=== PATIENT | male | born 1960 | race Caucasian/White ===

== ENCOUNTER 2021-03-05 17:58 | Inpatient (IN) | payer SELFPAY ==
[~2021-03-05] VITALS: Ht 165.1 cm; Wt 83.5 kg
[2021-03-05] MEDS ORDERED: ASPI-1497 PO (18:14)
[2021-03-05] MEDS ORDERED: LOSA25TA26 PO (18:14)
[2021-03-05] MEDS ORDERED: CLOP75TA33 PO (18:14)
[2021-03-05] MEDS ORDERED: CARV3.1242 PO (18:14)
[2021-03-05] MEDS ORDERED: SPIR25TA6 PO (18:14)
[2021-03-05] MEDS ORDERED: ATOR-2 PO (18:14)
[2021-03-05] MEDS ORDERED: TORS20TA4 PO (18:14)
[2021-03-05 19:08] LABS: BASOPHILS % 0.9 % (0.0-2.0); EOSINOPHILS % 1.6 % (0.0-5.0); HEMATOCRIT. 28.6 % (42.0-52.0); HEMOGLOBIN. 8.7 g/dL (14.0-18.0); LYMPHOCYTES % 26.9 % (20.0-50.0); MEAN CORPUSCULAR HEMOGLOBIN 21.1 pg (28.0-32.0); MEAN CORPUSCULAR VOLUME 69.7 fL (80.0-94.0); MEAN PLATELET VOLUME 8.2 fl (7.4-10.4); MONOCYTES % 7.1 % (2.0-8.0); NEUTROPHILS % 63.5 % (40.0-76.0); PLATELET 243 x1000/uL (130-400); RED BLOOD CELL COUNT 4.11 mill/uL (4.7-6.1)
[2021-03-05 19:28] LABS: PLATELET ESTIMATE NORMAL
[2021-03-05] MEDS ORDERED: FUROSEMIDE 40MG/4ML VIAL IVP ONE (22:15)
[2021-03-06] MEDS ORDERED: MAGNESIUM/ALUMINUM HYDROXIDE/SIMETHICONE 30ML UDC PO PRN (00:15)
[2021-03-06] MEDS ORDERED: CLONIDINE 0.1MG TABLET PO PRN (00:15)
[2021-03-06] MEDS ORDERED: ONDANSETRON HCL 4MG/2ML INJ IV PRN (00:15)
[2021-03-06] MEDS ORDERED: DEXTROSE 50% WATER 50ML SYRINGE IV PRN (00:15)
[2021-03-06] MEDS ORDERED: GUAIFENESIN 200MG/10ML SUGAR FREE UDC PO PRN (00:15)
[2021-03-06] MEDS ORDERED: ACETAMINOPHEN 325MG TABLET PO PRN ×2 (00:15)
[2021-03-06] MEDS ORDERED: ZOLPIDEM TARTRATE 5MG TABLET PO PRN (00:15)
[2021-03-06] MEDS ORDERED: DIPHENHYDRAMINE 50MG/ML VIAL IV PRN (00:15)
[2021-03-06 00:33] LABS: TOTAL IRON BINDING CAPACITY 442 ug/dL (250-450)
[2021-03-06] MEDS: SODIUM CHLORIDE 0.9% INJ 3ML FLUSH IVF SCH ×2 (06:20→14:00)
[2021-03-06] MEDS: INSULIN LISPRO 100 UNITS/ML SUBCUT SCH ×4 (08:20→20:08)
[2021-03-06] MEDS: ENOXAPARIN 40MG/0.4ML SYR SUBCUT SCH (08:32)
[2021-03-06] MEDS: CLOPIDOGREL 75MG TABLET PO SCH (08:32)
[2021-03-06] MEDS: FAMOTIDINE 20MG TABLET PO SCH (08:32)
[2021-03-06] MEDS: ASPIRIN 81MG EC TABLET PO SCH (08:44)
[2021-03-06] MEDS: BLOOD SUGAR DIAGNOSTIC STRIP TEST SCH ×4 (08:44→20:08)
[2021-03-06] MEDS ORDERED: CARVEDILOL 6.25 MG TABLET PO SCH (09:00)
[2021-03-06] MEDS ORDERED: FAMOTIDINE 20MG TABLET PO SCH (09:00)
[2021-03-06] MEDS ORDERED: TICAGRELOR 90 MG TABLET PO SCH (09:00)
[2021-03-06] MEDS ORDERED: FUROSEMIDE 40MG/4ML VIAL IVP SCH (09:00)
[2021-03-06] MEDS: LOSARTAN POTASSIUM 25 MG TABLET PO SCH (09:37)
[2021-03-06] MEDS: SPIRONOLACTONE 50MG TABLET PO SCH (09:37)
[2021-03-06] MEDS: CARVEDILOL 3.125 MG TABLET PO SCH ×2 (09:37→20:08)
[2021-03-06 09:45] VITALS: BP 114/74
[2021-03-06 11:16] VITALS: BP 114/74
[2021-03-06 12:00] VITALS: BP 119/77
[2021-03-06] MEDS ORDERED: BUMETANIDE 1MG/4ML VIAL IV SCH (14:30)
[2021-03-06 16:00] VITALS: BP 117/72
[2021-03-06] MEDS ORDERED: METOLAZONE 10MG TABLET PO NR (18:00)
[2021-03-06] MEDS: BUMETANIDE 1MG/4ML VIAL IV SCH (18:16)
[2021-03-06 20:04] VITALS: BP 103/70
[2021-03-06] MEDS: ATORVASTATIN CALCIUM 40MG TABLET PO SCH (20:11)
[2021-03-06] MEDS ORDERED: ATORVASTATIN CALCIUM 40MG TABLET PO SCH (21:00)
[2021-03-07] VITALS (8 sets, daily range): BP systolic 100–130; BP diastolic 54–91
[2021-03-07] MEDS: BUMETANIDE 1MG/4ML VIAL IV SCH ×2 (05:00→18:07)
[2021-03-07] MEDS: SODIUM CHLORIDE 0.9% INJ 3ML FLUSH IVF SCH ×2 (05:02→14:27)
[2021-03-07] MEDS: BLOOD SUGAR DIAGNOSTIC STRIP TEST SCH ×4 (07:30→21:00)
[2021-03-07] MEDS: INSULIN LISPRO 100 UNITS/ML SUBCUT SCH ×4 (08:00→21:00)
[2021-03-07] MEDS: ENOXAPARIN 40MG/0.4ML SYR SUBCUT SCH (09:05)
[2021-03-07] MEDS: LOSARTAN POTASSIUM 25 MG TABLET PO SCH (09:06)
[2021-03-07] MEDS: CLOPIDOGREL 75MG TABLET PO SCH (09:06)
[2021-03-07] MEDS: SPIRONOLACTONE 50MG TABLET PO SCH (09:07)
[2021-03-07] MEDS: FAMOTIDINE 20MG TABLET PO SCH (09:07)
[2021-03-07] MEDS: ASPIRIN 81MG EC TABLET PO SCH (09:07)
[2021-03-07] MEDS: CARVEDILOL 3.125 MG TABLET PO SCH ×2 (09:08→21:15)
[2021-03-07 12:47] LABS: BASOPHILS % 0.6 % (0.0-2.0); EOSINOPHILS % 1.9 % (0.0-5.0); HEMATOCRIT. 25.9 % (42.0-52.0); LYMPHOCYTES % 20.2 % (20.0-50.0); MEAN CORPUSCULAR HEMOGLOBIN 21.2 pg (28.0-32.0); MEAN CORPUSCULAR VOLUME 68.7 fL (80.0-94.0); MONOCYTES % 8.2 % (2.0-8.0); NEUTROPHILS % 69.1 % (40.0-76.0); PLATELET 222 x1000/uL (130-400); RED BLOOD CELL COUNT 3.76 mill/uL (4.7-6.1); RED CELL DISTRIBUTION WIDTH 20.8 % (11.6-14.6)
[2021-03-07] MEDS: METOLAZONE 10MG TABLET PO NR ×2 (15:05→17:35)
[2021-03-07] MEDS: POTASSIUM CHLORIDE 20MEQ TABLET SR PO SCH ×2 (16:00→17:35)
[2021-03-07] MEDS: ATORVASTATIN CALCIUM 40MG TABLET PO SCH (21:14)
[2021-03-08] VITALS (9 sets, daily range): BP systolic 94–112; BP diastolic 29–80
[2021-03-08] MEDS: SODIUM CHLORIDE 0.9% INJ 3ML FLUSH IVF SCH ×4 (01:13→22:03)
[2021-03-08] MEDS: BUMETANIDE 1MG/4ML VIAL IV SCH ×2 (05:36→18:18)
[2021-03-08] MEDS: BLOOD SUGAR DIAGNOSTIC STRIP TEST SCH ×4 (07:30→21:00)
[2021-03-08] MEDS: INSULIN LISPRO 100 UNITS/ML SUBCUT SCH ×4 (08:00→21:00)
[2021-03-08 08:27] LABS: CHLORIDE 102 mEq/L (98-107)
[2021-03-08 08:37] LABS: PHOSPHORUS 5.6 mg/dL (2.5-4.9)
[2021-03-08] MEDS: ENOXAPARIN 40MG/0.4ML SYR SUBCUT SCH (08:46)
[2021-03-08] MEDS: CARVEDILOL 3.125 MG TABLET PO SCH ×2 (08:47→22:02)
[2021-03-08] MEDS: LOSARTAN POTASSIUM 25 MG TABLET PO SCH (08:47)
[2021-03-08] MEDS: SPIRONOLACTONE 50MG TABLET PO SCH (08:47)
[2021-03-08] MEDS: ASPIRIN 81MG EC TABLET PO SCH (08:49)
[2021-03-08] MEDS: FAMOTIDINE 20MG TABLET PO SCH (08:49)
[2021-03-08] MEDS: CLOPIDOGREL 75MG TABLET PO SCH (08:49)
[2021-03-08] MEDS ORDERED: POTASSIUM CHLORIDE 20MEQ TABLET SR PO NR (11:45)
[2021-03-08] MEDS ORDERED: POTASSIUM CHLORIDE INJ 40 MEQ in DEXT 5% WATER 250 ML IV ONE (11:45)
[2021-03-08] MEDS ORDERED: MAGNESIUM 1 G PREMIX 100 ML IV NR (13:30)
[2021-03-08] MEDS: METOLAZONE 10MG TABLET PO SCH (17:48)
[2021-03-08] MEDS: ATORVASTATIN CALCIUM 40MG TABLET PO SCH (22:02)
[2021-03-09] VITALS: BP 103/70
[2021-03-09 04:00] VITALS: BP 104/71
[2021-03-09] MEDS: SODIUM CHLORIDE 0.9% INJ 3ML FLUSH IVF SCH ×2 (05:22→13:38)
[2021-03-09] MEDS: BUMETANIDE 1MG/4ML VIAL IV SCH (05:26)
[2021-03-09] MEDS: BLOOD SUGAR DIAGNOSTIC STRIP TEST SCH ×2 (07:30→12:48)
[2021-03-09 08:00] VITALS: BP 105/69
[2021-03-09] MEDS: INSULIN LISPRO 100 UNITS/ML SUBCUT SCH ×2 (08:00→12:49)
[2021-03-09] MEDS: SPIRONOLACTONE 50MG TABLET PO SCH (08:26)
[2021-03-09] MEDS: METOLAZONE 10MG TABLET PO SCH (08:26)
[2021-03-09] MEDS: FAMOTIDINE 20MG TABLET PO SCH (08:27)
[2021-03-09] MEDS: CARVEDILOL 3.125 MG TABLET PO SCH (08:27)
[2021-03-09] MEDS: LOSARTAN POTASSIUM 25 MG TABLET PO SCH (08:27)
[2021-03-09] MEDS: ASPIRIN 81MG EC TABLET PO SCH (08:27)
[2021-03-09] MEDS: ENOXAPARIN 40MG/0.4ML SYR SUBCUT SCH (08:28)
[2021-03-09] MEDS: CLOPIDOGREL 75MG TABLET PO SCH (08:40)
[2021-03-09 12:00] VITALS: BP 98/64
[2021-03-09 12:50] LABS: CHLORIDE 100 mEq/L (98-107)
[2021-03-09 14:17] VITALS: BP 100/61
[2021-03-09] MEDS: POTASSIUM CHLORIDE 20MEQ TABLET SR PO SCH ×2 (15:31→16:00)
[2021-03-09] MEDS ORDERED: MAGNESIUM 2 G PREMIX 50 ML IV SCH (16:00)
== END 2021-03-09 16:00 | disposition home or self-care (01) | DRG 190 ==
LOC: ER 17:58 → 5EST 23:53 → ENRESERV 03-06 08:24 → CANRESERV 03-06 08:24 → ENRESERV 03-06 08:59
PROVIDERS: ADMIT Internal Medicine; ATTEND Internal Medicine
DX: I21.4 Non-ST elevation (NSTEMI) myocardial infarction (principal); I50.23 Acute on chronic systolic (congestive) heart failure; N17.9 Acute kidney failure, unspecified; I11.0 Hypertensive heart disease with heart failure; I25.10 Atherosclerotic heart disease of native coronary artery without angina pectoris; E78.00 Pure hypercholesterolemia, unspecified; I25.5 Ischemic cardiomyopathy; D53.9 Nutritional anemia, unspecified; E87.6 Hypokalemia; E83.42 Hypomagnesemia; I25.2 Old myocardial infarction; Z95.5 Presence of coronary angioplasty implant and graft; Z79.899 Other long term (current) drug therapy; Z79.82 Long term (current) use of aspirin; Z79.02 Long term (current) use of antithrombotics/antiplatelets
CPT/HCPCS: 36415; 71045; 80048; 80076; 82270; 82962; 83036; 83540; 83550; 83735; 83880; 84100; 84484; 85025; 93005; 99285; J1650; J1940; J3475; J3490